=== PATIENT | male | born 1970 | race Caucasian/White ===

== ENCOUNTER → 2017-01-23 | Outpatient (CLI) | payer OTHER | END | disposition home or self-care (01) | LOC: CVU 12:54 | PROVIDERS: ATTEND Internal Medicine Cardiovascular Disease | DX: I48.2 Chronic atrial fibrillation (principal); E66.9 Obesity, unspecified; I10 Essential (primary) hypertension; I51.7 Cardiomegaly | CPT/HCPCS: 93306 ==

== ENCOUNTER → 2018-08-18 | Outpatient (CLI) | payer OTHER ==
[~2018-08-18] MED LIST: REGADENOSON 0.4 MG/5 ML SYRINGE ONE
== END | disposition home or self-care (01) ==
LOC: CVU 06:47
PROVIDERS: ATTEND Nurse Practitioner Family
DX: I48.91 Unspecified atrial fibrillation (principal); E78.5 Hyperlipidemia, unspecified; E11.9 Type 2 diabetes mellitus without complications
CPT/HCPCS: 78452; 93017; 93306; A9502; J2785

== ENCOUNTER 2018-09-29 08:53 | Outpatient (CLI) | payer OTHER | END 2018-09-29 23:59 | disposition home or self-care (01) | LOC: STAR 08:53 | PROVIDERS: ATTEND Thoracic Surgery (Cardiothoracic Vascular Surgery) | DX: J90 Pleural effusion, not elsewhere classified (principal); R94.31 Abnormal electrocardiogram [ECG] [EKG]; I48.1 Persistent atrial fibrillation | CPT/HCPCS: 71046; 93005 ==

== ENCOUNTER 2018-10-19 09:29 | Day surgery (SDC) | payer OTHER ==
[2018-10-18 10:09] VITALS: BP 115/68
[~2018-10-19] VITALS: Ht 182.9 cm; Wt 120.9 kg
[~2018-10-19 09:29] MED LIST changes: +AMIO200T42 PO; +ASPI-496 PO; +ATOR-2 PO; +LOSA25TA25 PO; +METF500T17 PO; +METO25TA35 PO; -REGADENOSON 0.4 MG/5 ML SYRINGE ONE; +SPIR25TA5 PO
[2018-10-19] MEDS ORDERED: SODIUM CHLORIDE 0.9% 1,000 ML IV SCH (09:41)
[2018-10-19] MEDS ORDERED: PROPOFOL 50 ML ONE (12:23)
[2018-10-19] MEDS ORDERED: MIDAZOLAM 1 MG/ML, 2ML ONE (12:24)
[2018-10-19] MEDS ORDERED: FENTANYL PF 250 MCG/5ML ONE (12:24)
[2018-10-19] MEDS ORDERED: LIDOCAINE 2%, 20ML ONE (12:36)
[2018-10-19] MEDS ORDERED: ROCURONIUM 10MG/ML,5ML ONE (12:48)
[2018-10-19] MEDS ORDERED: HEPARIN 1,000 UNITS/ML, 10ML ONE ×3 (13:04→14:31)
[2018-10-19] MEDS ORDERED: SUCCINYLCHOLINE 20 MG/ML, 10ML ONE (13:04)
[2018-10-19] MEDS ORDERED: ONDANSETRON 2MG/ML, 2ML ONE ×2 (13:05)
[2018-10-19] MEDS ORDERED: DEXAMETHASONE 4 MG/ML, 1ML ONE ×2 (13:05)
[2018-10-19] MEDS ORDERED: APIXABAN 5 MG TABLET ONE (15:30)
[2018-10-19] MEDS ORDERED: FENTANYL PF 100 MCG/2ML ONE (15:52)
[2018-10-19] MEDS ORDERED: MORPHINE SULFATE 4 MG/ML, 1ML IVPush PRN (16:00)
[2018-10-19] MEDS ORDERED: PROMETHAZINE 25 MG/ML, 1ML IV PRN (16:00)
[2018-10-19] MEDS ORDERED: ONDANSETRON ODT 8 MG PO PRN (16:00)
[2018-10-19] MEDS ORDERED: ONDANSETRON 2MG/ML, 2ML IV PRN (16:00)
[2018-10-19] MEDS ORDERED: DIAZEPAM 5 MG/ML, 2ML IVPush PRN (16:00)
[2018-10-19] MEDS ORDERED: EPHEDRINE 50 MG/ML, 1ML IVPush PRN (16:00)
[2018-10-19] MEDS ORDERED: OXYcodone 5 MG/5 ML ORAL.SOL UDC PO PRN (16:00)
[2018-10-19] MEDS ORDERED: MEPERIDINE/PF 25MG/0.5ML IVPush PRN (16:00)
[2018-10-19] MEDS ORDERED: FENTANYL PF 100 MCG/2ML IV PRN (16:00)
[2018-10-19] MEDS ORDERED: EPHEDRINE 50 MG/ML, 1ML IM PRN (16:00)
[2018-10-19] MEDS ORDERED: DIPHENHYDRAMINE 50 MG/ML, 1ML IVPush PRN (16:00)
[2018-10-19] MEDS ORDERED: ACETAMINOPHEN 325 MG TABLET PO PRN (16:00)
[2018-10-19] MEDS ORDERED: MIDAZOLAM 1 MG/ML, 5ML IV PRN (16:00)
[2018-10-19] MEDS: APIXABAN 5 MG TABLET PO SCH (16:20)
[2018-10-19 16:45] VITALS: BP 120/78
[2018-10-19] MEDS: ACETAMINOPHEN 325 MG TABLET PO PRN ×2 (17:16→22:14)
[2018-10-19 20:22] VITALS: BP 136/83
[2018-10-19] MEDS: AMIODARONE 200 MG TABLET PO SCH (20:36)
[2018-10-19] MEDS ORDERED: APIXABAN 5 MG TABLET PO ONE (21:00)
[2018-10-19] MEDS ORDERED: ATORVASTATIN 80 MG TABLET PO SCH (21:00)
[2018-10-19] MEDS ORDERED: ZOLPIDEM 5MG TABLET PO PRN (21:00)
[2018-10-20 01:20] VITALS: BP 123/73
[2018-10-20 08:08] VITALS: BP 125/77
[2018-10-20] MEDS ORDERED: LOSARTAN 25MG TABLET PO SCH (09:00)
[2018-10-20] MEDS ORDERED: METOPROLOL TARTRATE 25 MG TABLET PO SCH (09:00)
[2018-10-20] MEDS ORDERED: SPIRONOLACTONE 25 MG TABLET PO SCH (09:00)
[2018-10-20] MEDS ORDERED: APIX5TAB PO (09:50)
[2018-10-20] MEDS: APIXABAN 5 MG TABLET PO SCH (10:01)
[2018-10-20] MEDS: AMIODARONE 200 MG TABLET PO SCH (10:01)
[2018-10-20] MEDS ORDERED: AMIO200T42 PO (10:17)
[2018-10-20] MEDS ORDERED: METO25TA35 PO (10:17)
== END 2018-10-20 11:50 | disposition home or self-care (01) ==
LOC: CACL 09:29 → 5SO 15:33 → UNDOADMIN 15:33 → 5SO 16:36 → DCLOUNGE 10-20 11:45 → CACL 10-20 11:50 → UNDODISIN 10-20 11:50
PROVIDERS: ATTEND Internal Medicine Cardiovascular Disease
DX: I48.2 Chronic atrial fibrillation (principal); I11.9 Hypertensive heart disease without heart failure; E11.9 Type 2 diabetes mellitus without complications; E78.5 Hyperlipidemia, unspecified; D68.69 Other thrombophilia; E66.9 Obesity, unspecified; Z79.82 Long term (current) use of aspirin; Z79.01 Long term (current) use of anticoagulants; Z79.84 Long term (current) use of oral hypoglycemic drugs; Z79.899 Other long term (current) drug therapy; Z87.891 Personal history of nicotine dependence
CPT/HCPCS: 71046; 82962; 85347; 93308; 93321; 93325; 93613; 93655; 93656; 93657; 93662; C1730; C1731; C1732; C1766; C1893; C1894; J0330; J1100; J1644; J2250; J2405; J2704; J3010; G0378

== ENCOUNTER 2018-10-21 22:26 | Inpatient (IN) | payer OTHER ==
[~2018-10-21] VITALS: Ht 182.9 cm; Wt 121.5 kg
[~2018-10-21 22:26] MED LIST changes: +APIX5TAB PO
[2018-10-21] MEDS ORDERED: SODIUM CHLORIDE FLUSH 10ML SYR IVF ONE (23:00)
[2018-10-21] MEDS ORDERED: MORPHINE SULFATE 4 MG/ML, 1ML IVPush PRN (23:00)
[2018-10-21] MEDS ORDERED: MORPHINE SULFATE 4 MG/ML, 1ML ONE (23:11)
[2018-10-21 23:16] LABS: BASOPHILS % (AUTO) 1 % (0-1); EOSINOPHILS # (AUTO) 0.12 x10^3/uL (0-0.4); EOSINOPHILS % (AUTO) 1 % (1-7); LYMPHOCYTES # (AUTO) 1.76 x10^3/uL (1-3.4); LYMPHOCYTES % (AUTO) 14 % (22-44); MD NO; MEAN CORPUSCULAR HEMOGLOBIN 32.9 pg (27.5-34.5); MEAN CORPUSCULAR HGB CONC 33.4 g/dL (33.2-36.2); MEAN CORPUSCULAR VOLUME 98.6 fL (81-97); MEAN PLATELET VOLUME 8.2 fL (7.4-10.4); MONOCYTES # (AUTO) 1.29 x10^3/uL (0.2-0.8); MONOCYTES % (AUTO) 11 % (2-9); NEUTROPHILS # (AUTO) 8.98 x10^3/uL (1.8-6.8); NEUTROPHILS % (AUTO) 73 % (42-75); PLATELET COUNT 170 x10^3/uL (130-400); RED BLOOD COUNT 4.19 x10^6/uL (4.38-5.82); RED CELL DISTRIBUTION WIDTH 15.3 % (9.4-14.8)
[2018-10-21] MEDS ORDERED: ONDANSETRON 2MG/ML, 2ML ONE (23:18)
[2018-10-21 23:25] LABS: ALBUMIN 3.9 g/dL (3.4-5.0); ANION GAP 7 mmol/L (5-15); CALCIUM 8.7 mg/dL (8.5-10.1); CHLORIDE 107 mmol/L (98-107); CREATININE 1.09 mg/dL (0.7-1.3)
--- NOTE | 2018-10-21 23:27 | NUR ---
pt her for left sided chest pain that started this evening. Piv placed. pt medicated. vss. call light in reach
--- NOTE | 2018-10-21 23:55 | NUR ---
PT TO CT
[2018-10-22] MEDS ORDERED: ONDANSETRON 2MG/ML, 2ML IVPush ONE
[2018-10-22] MEDS ORDERED: OMNIPAQUE 350 MG/ML, 100ML BOTTLE ONE (00:06)
[2018-10-22 01:36] VITALS: BP 115/71
[2018-10-22] MEDS ORDERED: morphine SULFATE 10 MG/ML, 1ML IVPush PRN (02:30)
[2018-10-22] MEDS ORDERED: ONDANSETRON 2MG/ML, 2ML IVPush PRN (02:30)
[2018-10-22] MEDS ORDERED: ENALAPRILAT 1.25 MG/ML, 2ML IVPush PRN (02:30)
[2018-10-22] MEDS ORDERED: KETOROLAC 30 MG/1 ML IV PRN (02:30)
[2018-10-22] MEDS ORDERED: LIDODERM 5% PATCH TD PRN (02:30)
[2018-10-22] MEDS ORDERED: ACETAMINOPHEN 325 MG TABLET PO PRN (02:30)
[2018-10-22 02:55] LABS: HEMOGLOBIN A1C 5.7 % (4.2-6.3)
[2018-10-22 07:21] VITALS: BP 113/71
[2018-10-22 08:09] LABS: CHOLESTEROL, TOTAL 113 mg/dL (140-239)
[2018-10-22 08:14] LABS: CHOL/HDL RATIO 3.1; HDL CHOL % 32 % (26-37); HDL CHOLESTEROL (DIRECT) 36 mg/dL (40-60); LDL CHOLESTEROL,CALCULATED 57 mg/dL (54-169); LDL/HDL RATIO 1.6 (0.5-3.0); TRIGLYCERIDES 101 mg/dL (50-200); TROPONIN I 0.733 ng/mL (0.000-0.045); VLDL CHOLESTEROL 20 mg/dL (0-25)
[2018-10-22] MEDS ORDERED: SPIRONOLACTONE 25 MG TABLET PO SCH (09:00)
[2018-10-22] MEDS ORDERED: APIXABAN 5 MG TABLET PO SCH (09:00)
[2018-10-22] MEDS ORDERED: LOSARTAN 25MG TABLET PO SCH (09:00)
[2018-10-22] MEDS ORDERED: COLCHICINE 0.6 MG TABLET PO SCH (09:00)
[2018-10-22] MEDS ORDERED: METOPROLOL TARTRATE 25 MG TABLET PO SCH (09:00)
[2018-10-22] MEDS ORDERED: SENNA/DOCUSATE TABLET PO SCH (09:00)
[2018-10-22] MEDS ORDERED: AMIODARONE 200 MG TABLET PO SCH (09:00)
[2018-10-22 11:04] LABS: TROPONIN I 0.622 ng/mL (0.000-0.045)
[2018-10-22] MEDS: INSULIN LISPRO 100 UNITS/ML, PEN SQ-INSULIN SCH ×2 (11:53→16:00)
[2018-10-22 12:55] VITALS: BP 100/67
[2018-10-22] MEDS ORDERED: COLC0.6T37 PO (16:01)
[2018-10-22] MEDS ORDERED: AMIO200T42 PO (16:01)
[2018-10-22] MEDS ORDERED: ATORVASTATIN 80 MG TABLET PO SCH (21:00)
[2018-10-23] MEDS ORDERED: AMIODARONE 200 MG TABLET PO SCH (09:00)
== END 2018-10-22 17:12 | disposition home or self-care (01) | DRG 315 ==
LOC: ED 22:46 → EDIP 10-22 01:29 → 5SO 10-22 01:31 → DCLOUNGE 10-22 16:50
PROVIDERS: ADMIT Family Medicine; ATTEND Family Medicine
DX: I31.9 Disease of pericardium, unspecified (principal); D68.69 Other thrombophilia; J90 Pleural effusion, not elsewhere classified; J98.11 Atelectasis; E11.9 Type 2 diabetes mellitus without complications; E66.01 Morbid (severe) obesity due to excess calories; Z68.36 Body mass index [BMI] 36.0-36.9, adult; E78.5 Hyperlipidemia, unspecified; G47.33 Obstructive sleep apnea (adult) (pediatric); I31.3 Pericardial effusion (noninflammatory); I48.0 Paroxysmal atrial fibrillation; I10 Essential (primary) hypertension; Z87.891 Personal history of nicotine dependence
CPT/HCPCS: 36415; 71045; 71275; 80048; 80061; 82040; 82962; 83036; 83735; 84100; 84484; 85025; 85379; 93005; 93308; 93321; 93325; 96374; 96375; J1885; J2405; Q9967; J2270

== ENCOUNTER 2018-11-19 08:31 | Outpatient (CLI) | payer OTHER ==
[~2018-11-19 08:31] MED LIST changes: +COLC0.6T37 PO
[2018-11-19] MEDS ORDERED: OMNIPAQUE 350 MG/ML, 100ML BOTTLE ONE (15:19)
== END 2018-11-19 23:59 | disposition home or self-care (01) ==
LOC: CFH 08:31
PROVIDERS: ATTEND Registered Nurse
DX: I31.3 Pericardial effusion (noninflammatory) (principal); N62 Hypertrophy of breast
CPT/HCPCS: 71275; Q9967

== ENCOUNTER 2018-12-17 09:59 | Day surgery (SDC) | payer OTHER ==
[~2018-12-17] VITALS: Ht 182.9 cm; Wt 117.3 kg
[2018-12-17 11:31] VITALS: BP 108/64
== END 2018-12-17 13:12 | disposition home or self-care (01) ==
LOC: CACL 09:59
PROVIDERS: ATTEND Internal Medicine Cardiovascular Disease
DX: I48.2 Chronic atrial fibrillation (principal); I10 Essential (primary) hypertension; E11.9 Type 2 diabetes mellitus without complications; E78.5 Hyperlipidemia, unspecified; E66.9 Obesity, unspecified; Z79.01 Long term (current) use of anticoagulants; Z79.899 Other long term (current) drug therapy; Z87.891 Personal history of nicotine dependence
CPT/HCPCS: 36415; 80048; 92960; J2704

== ENCOUNTER → 2019-03-01 | Outpatient (CLI) | payer OTHER | END | disposition home or self-care (01) | LOC: CVU 13:47 | PROVIDERS: ATTEND Internal Medicine Cardiovascular Disease | DX: I51.7 Cardiomegaly (principal); I48.91 Unspecified atrial fibrillation; Z87.891 Personal history of nicotine dependence; E11.9 Type 2 diabetes mellitus without complications; Z83.3 Family history of diabetes mellitus; Z82.5 Family history of asthma and other chronic lower respiratory diseases; E78.5 Hyperlipidemia, unspecified | CPT/HCPCS: 93306 ==